=== PATIENT | female | born 1970 | race Caucasian/White ===

== ENCOUNTER 2019-05-03 07:27 | Outpatient (RCR) | payer OTHER, SELFPAY ==
--- NOTE | 2019-03-15 13:11 | WPDWOUNDNOTE ---
Wound Care Note Date/Time: 03/15/19 13:11 History: This is a 48-year-old female with a history psoriatic arthritis on chronic immunosuppression drug therapy, morbid obesity, hypertension, obstructive sleep apnea, asthma, depression, and anxiety. She has no history of previous perirectal abscesses. Patient presented to the emergency department at [facility] and was assessed by Dr. Calixto for a perianal abscess on 03/05/2019. She was taken for incision and drainage of the perianal abscess that had tunneling towards the right buttock on 03/05/2019. She was hospitalized and treated with IV antibiotics. Cultures of the wound grew bacterioides fragilis. She was transition to oral antibiotics and discharged on 03/09/2019. She went home on a course of Levaquin and Flagyl. She was sent home with silver gel and instructed to place silver gel in the wound bed and pack with plain gauze dressing. During the hospital stay, the patient was also stopped on her Humira and methotrexate medication. She was instructed to see her forensics team director and discuss the time frame of restarting this medication. She had no flare ups of for psoriatic arthritis during the admission. Wound history: Perianal abscess status post incision and drainage on 03/05/2019. Completed a course of IV to oral antibiotics. On discharge on 03/09/2019, the patient was instructed to use silver gel in the wound bed and packed with plain Nu gauze dressing and cover with gauze and an ABD. This was to be done daily. The patient now presents in initial follow-up following discharge. She reports completing her course of antibiotics. Denies any fever or chills. Reports her pain is improved significantly since discharge and she is able to tolerate the packing better. Still taking hydrocodone as needed for pain, but is now only taking half a tablet. She states she still has multiple tablets left. Denies any flare ups of her psoriatic arthritis. No other new complaints at this time. ROS- In general patient has had no weight loss, anorexia, night sweats, fever or chills. Skin-no rashes or new lesions Eyes-no problems with vision loss HENT-no recent bleeding, obstruction or other problems Neck-no history of thyromegaly or enlarged lymph nodes Chest-no history of significant wheezing, dyspnea or cough Cardiovascular-no history of thrombophlebitis, edema, heart murmur or other problems GI-no history of significant heartburn, nausea, vomiting, or bloating. Diarrhea has improved and become more formed stool. No purulence drainage from wound noted. Extremities-no history or varicose veins, claudication Endocrine-no history of temperature intolerance or goiter Neurologic-no history of headaches, seizures or dizziness. Wound approximation: No Wound width: 4.5 cm Wound length: 2.0 cm Wound depth: 2.5 cm Drainage: Minimal serosanguineous. No purulent drainage. Surrounding tissue appearance: Some localized induration noted but much improved since hospitalization. No surrounding cellulitis or erythema. Tunneling: None Percentage granulation tissue: 100% Treatment/Procedures: Wound assessment and dressing change. Dressings: Applied silver gel to the wound bed then packed the abscess cavity with 1/2 plain gauze packing, then applied gauze and ABD overlying the wound. Assessment and Plan Assessment and plan (1) Perianal abscess: Code(s): K61.0 - Anal abscess Status: Acute Assessment and Plan: Assessment: General: Obese, well-developed female without acute distress who ambulated into the room. Head: Normocephalic and atraumatic. Cardiac: RRR. No peripheral edema. Pulmonary: Normal respiratory effort without accessory muscle use. Lungs CTA throughout. GI: BS active. Abdomen soft, non-distended, and non-tender. Musculoskeletal: Normal joint ROM. No obvious deformities. Strength strong and equal bilaterally. Neurologic: Alert and oriented x 3. CN II-XII grossly intact. Psych: Mo
[2019-03-15 14:46] VITALS: BMI 57.6
--- NOTE | 2019-03-29 20:26 | P.PNWOUND_ITS ---
Wound Care Note Date/Time: 03/29/19 12:06 History: This is a 48-year-old female with a history psoriatic arthritis on chronic immunosuppression drug therapy, morbid obesity, hypertension, obstructive sleep apnea, asthma, depression, and anxiety. She has no history of previous perirectal abscesses. Patient presented to the emergency department at [facility] and was assessed by Dr. Calixto for a perianal abscess on 03/05/2019. She was taken for incision and drainage of the perianal abscess that had tunneling towards the right buttock on 03/05/2019. She was hospitalized and treated with IV antibiotics. Cultures of the wound grew bacterioides fragilis. She was transition to oral antibiotics and discharged on 03/09/2019. She went home on a course of Levaquin and Flagyl. She was sent home with silver gel and instructed to place silver gel in the wound bed and pack with plain gauze dressing. During the hospital stay, we also had the patient stop taking her Humira and methotrexate medication. She was instructed to see her workers' compensation commissioner and discuss the time frame of restarting this medication. She had no flare ups of for psoriatic arthritis during the admission. Wound history: Perianal abscess status post incision and drainage on 03/05/2019. Completed a course of IV to oral antibiotics( 2weeks) On discharge on 03/09/2019, the patient was instructed to use silver gel in the wound bed and pack it with plain Nu gauze dressing and cover with gauze and an ABD. This was to be done daily. Patient has a trusted friend who is a nurse that is packing this for her period The patient now presents for follow-up following that discharge. She reports completing her course of antibiotics. Denies any fever or chills. Reports her pain is improved significantly since her last visit and she is able to tolerate the packing. Still taking hydrocodone as needed for pain, but is now only taking half a tablet. She states she still has multiple tablets left. Denies any flare ups of her psoriatic arthritis. No other new complaints at this time. Wound approximation: No Wound width: 3.3 cm Wound length: 1.2 cm Wound depth: 1.3 cm Drainage: only serous drainage with good granulation Surrounding tissue appearance: Skin surrounding this entire wound is pink and healthy. Tunneling: just a slight amount tunneling medially toward the edge of the anal opening. Percentage granulation tissue: 100% Treatment/Procedures: off antibiotics Continue local wound care with packing. Dressings: Continuing dressings as noted above. Silver gel or cream applied to wound bed then packed loosely medially and tighter laterally with quarter or half-inch plain Nu Gauze.
--- NOTE | 2019-04-12 12:22 | WPDWOUNDNOTE ---
Wound Care Note Date/Time: 04/12/19 12:22 History: This is a 48-year-old female with a history psoriatic arthritis on chronic immunosuppression drug therapy, morbid obesity, hypertension, obstructive sleep apnea, asthma, depression, and anxiety. She has no history of previous perirectal abscesses. Patient presented to the emergency department at [facility] and was assessed by Dr. Calixto for a perianal abscess on 03/05/2019. She was taken for incision and drainage of the perianal abscess that had tunneling towards the right buttock on 03/05/2019. She was hospitalized and treated with IV antibiotics. Cultures of the wound grew bacterioides fragilis. She was transition to oral antibiotics and discharged on 03/09/2019. She went home on a course of Levaquin and Flagyl. She was sent home with silver gel and instructed to place silver gel in the wound bed and pack with plain gauze dressing. During the hospital stay, we also had the patient stop taking her Humira and methotrexate medication. She was instructed to see her engraver automatic and discuss the time frame of restarting this medication. She had no flare ups of for psoriatic arthritis during the admission. She since has called her Cafeteria Helper and she was okay with holding the previously mentioned medications and take her PO Tramadol as needed for the pain and if she has worsening symptoms, then they would consider also oral steroids. As of today, the patient is still off the Humira and methotrexate and states she is definitely having symptoms with pain due to her psoriatic arthritis, but it is being well-controlled with the Tramadol at this time without any need for steroids. Wound history: Perianal abscess status post incision and drainage on 03/05/2019. Completed a course of IV to oral antibiotics( 2weeks) On discharge on 03/09/2019, the patient was instructed to use silver gel in the wound bed and pack it with plain Nu gauze dressing and cover with gauze and an ABD. This was to be done daily. Patient has a trusted friend who is a nurse that has been packing this for her. The patient now presents for her third follow-up following that discharge. Denies any fever or chills. Denies any noticed changes in the wound, including no drainage. No other new complaints at this time. Wound approximation: No Wound width: 2.2 cm Wound length: 1 cm Wound depth: 0.5 cm Drainage: None Surrounding tissue appearance: Skin surrounding this entire wound is pink and healthy. Tunneling: The area of previous tunneling has began to epithelialize. There is no areas of significant tunneling noted today. Percentage granulation tissue: 100% Treatment/Procedures: Wound assessment: The wound appears to be continuing to heal well without any further signs of infection. The inside of the wound bed has 100% granulation tissue but the area of the wound bed along the inferior border of the wound appears to have some hypertrophy of the tissue that extends above the level of skin and likely wound inhibit continued wound healing for this to approximate well. Therefore, Dr. Calixto (who was also present for the evaluation) applied some silver nitrate to this area of what appeared to be hypertophied granulation tissue. This will hopefully allow this to continue to epithelialize and heal in nicely. Overall, the wound has also decreased in length, width, and depth. Continues to heal well. We will plan to see the patient in follow-up with Dr. Calixto in the wound clinic in 3 weeks (May 03). Continue local wound care as described below. Dressing changed today. Dressings: At this point, it does not need any further packing. Will continue to apply silver gel to the wound bed and cover with ABD or gauze dressing. Change daily and as needed after bowel movements.
--- NOTE | 2019-05-12 12:55 | WPDWOUNDNOTE ---
Wound Care Note Date/Time: 05/03/19 12:55 History: This is a 48-year-old female with a history psoriatic arthritis on chronic immunosuppression drug therapy, morbid obesity, hypertension, obstructive sleep apnea, asthma, depression, and anxiety. She has no history of previous perirectal abscesses. Patient presented to the emergency department at [facility] and was assessed by myself for a perianal abscess on 03/05/2019. She was taken for incision and drainage of the perianal abscess that had tunneling towards the right buttock on 03/05/2019. She was hospitalized and treated with IV antibiotics. Cultures of the wound grew bacterioides fragilis. She was transition to oral antibiotics and discharged on 03/09/2019. She went home on a course of Levaquin and Flagyl. She was sent home with silver gel and instructed to place silver gel in the wound bed and pack with plain gauze dressing. During the hospital stay, we also had the patient stop taking her Humira and methotrexate medication. She was instructed to see her intranet developer and discuss the time frame of restarting this medication. She had no flare ups of for psoriatic arthritis during the admission. She since has called her Belt Conveyor Drier and she was okay with holding the previously mentioned medications and take her PO Tramadol as needed for the pain and if she has worsening symptoms, then they would consider also oral steroids. As of today, the patient is still off the Humira and methotrexate and states she is definitely having symptoms with pain due to her psoriatic arthritis, but it is being well-controlled with the Tramadol at this time without any need for steroids. Wound history: Wound history: Perianal abscess status post incision and drainage on 03/05/2019. Completed a course of IV to oral antibiotics( 2weeks) On discharge on 03/09/2019, the patient was instructed to use silver gel in the wound bed and pack it with plain Nu gauze dressing and cover with gauze and an ABD. This was to be done daily. Patient has a trusted friend who is a nurse that has been packing this for her. The patient now presents for her third follow-up following that discharge. Denies any fever or chills. Denies any noticed changes in the wound, including no drainage. No other new complaints at this time Wound approximation: Yes ( today wound appears to be completely healed in. There is still a crease.) Wound width: Wound is completely healed in and there is still a crease that has epithelialized that starts right at the anal opening extends laterally toward the right buttock. There is however no open wound. Wound length: Wound is completely healed in and there is still a crease that has epithelialized that starts right at the anal opening extends laterally toward the right buttock. There is however no open wound Wound depth: NA Drainage: None Surrounding tissue appearance: the surrounding skin looks like normal scan on the buttock Tunneling: none Percentage granulation tissue: not applicable. Wound is healed. Treatment/Procedures: I have discussed with the patient and her friend who is a nurse that I think that she should simply take a Sitz bath or and old shower after each bowel movement for the next week. She is to keep a cotton ball at the exit or at the external opening of the anus. She needs to try to prevent maceration at this site. Dressings: No dressings required except a dry cotton ball at the a opening of the anus. Assessment and Plan Assessment and plan (1) Perianal abscess: Onset Date: ~03/2019 Code(s): K61.0 - Anal abscess Status: Acute Assessment and Plan: This state I had a significant discussion with the patient about trying to prevent another perineal abscess. Basically this involves hygiene and being cautious about injury to the skin in the perianal area and keeping that skin healthy. We also discussed the possibility that this was really t
== END 2019-06-03 12:32 | disposition home or self-care (01) ==
LOC: ANHWOC 07:27
PROVIDERS: PCP Family Medicine; Visit Provider Surgery
DX: L05.91 Pilonidal cyst without abscess (principal)
CPT/HCPCS: 92593; 99212; 99213; G0463

== ENCOUNTER 2019-10-22 13:09 | Outpatient (CLI) | payer OTHER, SELFPAY ==
[2019-10-22 13:37] LABS: Basophils Absolute Auto 0.1 K/mm3 (0.0-0.1); Basophils Percent Auto 1.5 % (0.2-1.2); Eosinophils Absolute Auto 0.2 K/mm3 (0-0.3); Hematocrit 42.8 % (37.0-47.0); Hemoglobin 14.2 g/dL (12.0-15.0); Immature Granulocyte Absolute 0.02 K/mm3 (0.00-0.031); Immature Granulocyte Percent A 0.3 % (0-0.5); Lymphocytes Absolute Auto 2.48 K/mm3 (0.9-3.2); Lymphocytes Percent Auto 37.8 % (18.3-44.2); Mean Corpuscular HGB Conc 33.2 g/dl (32-36); Mean Corpuscular Hemoglobin 30.6 pg (26-34); Mean Corpuscular Volume 92.2 fl (80-100); Mean Platelet Volume 11.5 fl (7.4-10.4); Monocytes Absolute Auto 0.6 K/mm3 (0.1-0.6); Monocytes Percent Auto 9.1 % (2.6-8.5); Neutrophils Absolute Auto 3.2 K/mm3 (1.3-6.7); Neutrophils Percent Auto 48.3 % (45.5-73.1); Platelet Count Result 286 k/mm3 (150-375); Red Blood Count 4.64 M/mm3 (4.2-5.4); Red Cell Distribution Width 13.6 % (11.5-14.5); White Blood Count 6.6 K/mm3 (4.5-10.0)
[2019-10-22 13:44] LABS: Add Urine Microscopic? YES; Appearance Urine Clear (Clear); Bacteria Urine Trace /hpf; Bilirubin Urine Negative (Negative); Blood Urine Negative (Negative); Color Urine Yellow (Yellow); Glucose Urine UA Negative (Negative); Hyaline Casts Urine 20-29 /lpf; Ketones Urine Trace mg/dL (Negative); Leukocyte Esterase Ur Negative LEU/UL (NEGATIVE); Mucus Urine Rare /lpf; Nitrate Urine Negative (Negative); Protein Urine 2+ mg/dL (Negative); Specific Grav Ur 1.024 (1.001-1.035); Squamous Epithelial Cell Urine Many /hpf (Few)
[2019-10-22 13:50] LABS: Alanine Aminotransferase 15 U/L (4-35); Albumin Level 4.2 g/dL (3.5-5.1); Alkaline Phosphatase 84 U/L (38-126); Aspartate Amino Transferase 31 U/L (14-36); Bilirubin,Total 0.3 mg/dL (0.2-1.3); Blood Urea Nitrogen 11 mg/dL (7-17); Calcium 9.1 mg/dL (8.4-10.2); Carbon Dioxide 27 mmol/L (22-30); Chloride 99 mmol/L (98-107); Cholesterol 210 mg/dL (0-200); Estimated Glomerular Filt Rate > 60; Glucose 129 mg/dL (65-105); HDL Direct 46 mg/dL; Potassium 3.9 mmol/L (3.4-5.0); Sodium 134 mmol/L (137-145); Triglycerides 331 mg/dL (<150)
[2019-10-22 14:01] LABS: LDL Cholesterol Direct 134 mg/dL
[2019-10-22 14:18] LABS: Iron 108 ug/dL (37-170)
[2019-10-22 14:28] LABS: Percent Iron Saturation 37 % (20-50)
[2019-10-22 14:57] LABS: Folic Acid 13.1 ng/mL (2.76->20); Vitamin B12 > 1000.0 pg/mL (239-931)
[2019-10-24 23:09] LABS: Zinc 66 mcg/dL (60-130)
[2019-10-26 13:17] LABS: Vitamin B1 7 nmol/L (8-30)
== END 2019-10-22 13:10 | disposition home or self-care (01) ==
PROVIDERS: PCP Family Medicine
DX: E55.9 Vitamin D deficiency, unspecified (principal); K90.9 Intestinal malabsorption, unspecified; I10 Essential (primary) hypertension; Z98.84 Bariatric surgery status
CPT/HCPCS: 36415; 80053; 80061; 81001; 82525; 82607; 82728; 82746; 83036; 83540; 83550; 84425; 84443; 84630; 85025

== ENCOUNTER 2019-10-28 10:04 | Outpatient (CLI) | payer OTHER, SELFPAY ==
--- NOTE | ~2019-10-28 | CT_ITS ---
EXAMINATION: CT chest wo con DATE: 10/28/2019 10:31 INDICATION: Pulmonary nodule TECHNIQUE: Computed tomography (CT) of the chest was performed without intravenous contrast. The dose -length product (DLP) was 510.82 mGy-cm. Automated exposure control and iterative reconstruction tech Cod[employer] were employed. COMPARISON: 09/10/2018 FINDINGS: A 4 mm nodule of the left lower lobe on image 53 appears stable although there was slight r espiratory motion artifact in this area on the comparison examination. No new pulmonary nodules are i dentified. There is no pleural effusion or pneumothorax. No pathologically enlarged thoracic lymph no markos are identified. The heart size is normal. Calcified coronary artery atherosclerosis is noted. Nicolas gical changes in the stomach are likely related to gastric bypass. There is moderate thoracic spondyl osis. IMPRESSION: 1. Stable left lower lobe nodule, most likely old granulomatous disease. Reviewed, dictated and finalized at location A.
== END 2019-10-28 10:05 | disposition home or self-care (01) ==
PROVIDERS: PCP Family Medicine; Visit Provider Nurse Practitioner Family
DX: R91.1 Solitary pulmonary nodule (principal)
CPT/HCPCS: 71250

== ENCOUNTER 2020-01-05 08:37 | Outpatient (CLI) | payer OTHER, SELFPAY ==
[2020-01-05 08:54] LABS: Hematocrit 42.7 % (37.0-47.0); Hemoglobin 14.7 g/dL (12.0-15.0); Mean Corpuscular HGB Conc 34.4 g/dl (32-36); Mean Corpuscular Hemoglobin 31.1 pg (26-34); Mean Corpuscular Volume 90.5 fl (80-100); Mean Platelet Volume 11.3 fl (7.4-10.4); Platelet Count Result 278 k/mm3 (150-375); Red Blood Count 4.72 M/mm3 (4.2-5.4); Red Cell Distribution Width 13.2 % (11.5-14.5); White Blood Count 7.1 K/mm3 (4.5-10.0)
[2020-01-05 09:10] LABS: Alanine Aminotransferase 16 U/L (4-35); Alkaline Phosphatase 77 U/L (38-126); Anion Gap 8 mmol/L (8-16); Aspartate Amino Transferase 28 U/L (14-36); Bilirubin,Total 0.3 mg/dL (0.2-1.3); Blood Urea Nitrogen 12 mg/dL (7-17); CRP 1.3 mg/dL (<1.0); Calcium 8.9 mg/dL (8.4-10.2); Carbon Dioxide 27 mmol/L (22-30); Chloride 101 mmol/L (98-107); Estimated Glomerular Filt Rate > 60; Glucose 135 mg/dL (65-105); Potassium 3.7 mmol/L (3.4-5.0); Sodium 136 mmol/L (137-145)
[2020-01-05 09:17] LABS: Erythrocyte Sedimentation Rate 20 mm/hr (0-20)
== END 2020-01-05 08:38 | disposition home or self-care (01) ==
LOC: ANHLAB 08:41
PROVIDERS: PCP Family Medicine
DX: M06.9 Rheumatoid arthritis, unspecified (principal); Z79.899 Other long term (current) drug therapy; L40.50 Arthropathic psoriasis, unspecified
CPT/HCPCS: 36415; 80053; 85027; 85652; 86140

== ENCOUNTER 2020-03-27 17:07 | Outpatient (CLI) | payer OTHER, SELFPAY ==
--- NOTE | ~2020-03-27 | MM_ITS ---
EXAMINATION: MM screening devika BI w tammy HISTORY: Screening mammogram TECHNIQUE: Craniocaudal and mediolateral oblique 3-D tomosynthesis images were obtained and synthetic 2-D images were generated. CAD analysis was submitted and interpreted. COMPARISON: 08/18/2017 bilateral digital screening mammogram BREAST PARENCHYMAL COMPOSITION: There are scattered areas of fibroglandular density. FINDINGS: A few stable benign calcifications are noted. There is no evidence of suspicious mass, calc ification, or architectural distortion to suggest malignancy in either breast. There has been no susp icious interval change. IMPRESSION: 1. No mammographic evidence of malignancy. 2. Recommend routine screening mammography in one year. BI-RADS Category 2: Benign finding(s). Reviewed, dictated and finalized at location A. RBERATORY FURNACE SUPERVISOR
== END 2020-03-27 17:08 | disposition home or self-care (01) ==
LOC: ANHIMG 17:10
PROVIDERS: PCP Family Medicine; Visit Provider Obstetrics & Gynecology
DX: Z12.31 Encounter for screening mammogram for malignant neoplasm of breast (principal)
CPT/HCPCS: 77063; 77067

== ENCOUNTER 2020-09-20 16:50 | Outpatient (CLI) | payer OTHER, SELFPAY ==
--- NOTE | ~2020-09-20 | CT_ITS ---
EXAMINATION: CT diagnostic chest wo con DATE: 09/20/2020 17:08 INDICATION: Solitary pulmonary nodule TECHNIQUE: Computed tomography (CT) of the chest was performed without intravenous contrast. The dose -length product (DLP) was 585.03 mGy-cm. Automated exposure control and iterative reconstruction tech nique were employed. COMPARISON: 10/28/2019, 09/10/2018 FINDINGS: A 5 mm nodule of the left lower lobe is not significantly changed. No new pulmonary nodules are identified. The lungs are free of acute opacities. There is no pleural effusion or pneumothorax. No pathologically enlarged thoracic lymph nodes are identified. The heart size is normal. Calcified coronary artery atherosclerosis is noted. Surgical changes in the stomach likely related to gastric b ypass. The gallbladder is surgically absent. There is moderate thoracic spondylosis. IMPRESSION: 1. Stable left lower lobe nodule, most consistent with old granulomatous disease. Reviewed, dictated and finalized at location A. IMPRESSION: 1. Stable left lower lobe nodule, most consistent with old granulomatous diseas e.
== END 2020-09-20 16:51 | disposition home or self-care (01) ==
PROVIDERS: PCP Family Medicine; Visit Provider Nurse Practitioner Family
DX: R91.1 Solitary pulmonary nodule (principal)
CPT/HCPCS: 71250

== ENCOUNTER 2020-10-17 08:12 | Outpatient (CLI) | payer OTHER, SELFPAY ==
[2020-10-17 08:59] LABS: Alanine Aminotransferase 23 U/L (4-35); Albumin Level 4.4 g/dL (3.5-5.1); Alkaline Phosphatase 63 U/L (38-126); Anion Gap 11 mmol/L (8-16); Aspartate Amino Transferase 41 U/L (14-36); Bilirubin,Total 0.5 mg/dL (0.2-1.3); Blood Urea Nitrogen 18 mg/dL (7-17); Calcium 9.9 mg/dL (8.4-10.2); Carbon Dioxide 28 mmol/L (22-30); Chloride 100 mmol/L (98-107); Estimated Glomerular Filt Rate > 60; Glucose 114 mg/dL (65-105); Potassium 3.6 mmol/L (3.4-5.0); Sodium 139 mmol/L (137-145)
[2020-10-17 09:28] LABS: Hemoglobin A1C 5.7 % (<5.7)
[2020-10-17 10:06] LABS: Folic Acid 12.7 ng/mL (2.76->20); Vitamin B12 > 1000.0 pg/mL (239-931)
[2020-10-17 13:06] LABS: CRP 0.9 mg/dL (<1.0)
[2020-10-17 13:16] LABS: Erythrocyte Sedimentation Rate 16 mm/hr (0-20)
[2020-10-20 12:05] LABS: Vitamin B1 25 nmol/L (8-30)
== END 2020-10-17 08:13 | disposition home or self-care (01) ==
PROVIDERS: PCP Family Medicine; Visit Provider Physician Assistant
DX: E51.9 Thiamine deficiency, unspecified (principal); R74.8 Abnormal levels of other serum enzymes; R73.01 Impaired fasting glucose; M17.10 Unilateral primary osteoarthritis, unspecified knee; L40.50 Arthropathic psoriasis, unspecified
CPT/HCPCS: 36415; 80053; 82607; 82746; 83036; 84425; 85652; 86140

== ENCOUNTER 2021-02-18 08:15 | Outpatient (CLI) | payer OTHER, SELFPAY ==
[2021-02-18 08:48] LABS: Hematocrit 45.1 % (37.0-47.0); Hemoglobin 14.9 g/dL (12.0-15.0); Mean Corpuscular Volume 93.8 fl (80-100); Mean Platelet Volume 11.9 fl (7.4-10.4); Platelet Count Result 246 k/mm3 (150-375); Red Blood Count 4.81 M/mm3 (4.2-5.4); Red Cell Distribution Width 13.8 % (11.5-14.5); White Blood Count 7.4 K/mm3 (4.5-10.0)
[2021-02-18 09:02] LABS: Alanine Aminotransferase 22 U/L (4-35); Albumin Level 4.4 g/dL (3.5-5.1); Alkaline Phosphatase 70 U/L (38-126); Anion Gap 7 mmol/L (8-16); Aspartate Amino Transferase 30 U/L (14-36); Bilirubin,Total 0.5 mg/dL (0.2-1.3); Blood Urea Nitrogen 14 mg/dL (7-17); Calcium 9.8 mg/dL (8.4-10.2); Carbon Dioxide 31 mmol/L (22-30); Chloride 100 mmol/L (98-107); Cholesterol 147 mg/dL (0-200); Estimated Glomerular Filt Rate > 60; Glucose 99 mg/dL (65-110); HDL Direct 38 mg/dL; Potassium 3.5 mmol/L (3.4-5.0); Sodium 138 mmol/L (137-145); Triglycerides 169 mg/dL (<150)
[2021-02-18 09:13] LABS: LDL Cholesterol Direct 80 mg/dL
[2021-02-18 10:10] LABS: Folic Acid 15.4 ng/mL (2.76->20); Vitamin B12 > 1000.0 pg/mL (239-931)
[2021-02-18 10:31] LABS: Iron 78 ug/dL (37-170)
[2021-02-18 10:40] LABS: Percent Iron Saturation 24 % (20-50)
[2021-02-18 12:39] LABS: Vitamin D 25 Hydroxy 89.4 ng/mL
[2021-02-21 00:35] LABS: Zinc 89 mcg/dL (60-130)
== END 2021-02-18 08:16 | disposition home or self-care (01) ==
PROVIDERS: PCP Family Medicine
DX: L40.50 Arthropathic psoriasis, unspecified (principal); E55.9 Vitamin D deficiency, unspecified; Z98.84 Bariatric surgery status; K90.9 Intestinal malabsorption, unspecified; I10 Essential (primary) hypertension
CPT/HCPCS: 36415; 80053; 80061; 82306; 82525; 82607; 82728; 82746; 83540; 83550; 84425; 84436; 84443; 84630; 85027

== ENCOUNTER 2021-04-18 08:18 | Outpatient (CLI) | payer OTHER, SELFPAY ==
[2021-04-18 09:06] LABS: Hematocrit 43.6 % (37.0-47.0); Hemoglobin 14.3 g/dL (12.0-15.0); Mean Corpuscular HGB Conc 32.8 g/dl (32-36); Mean Corpuscular Hemoglobin 30.8 pg (26-34); Mean Corpuscular Volume 93.8 fl (80-100); Mean Platelet Volume 12.6 fl (7.4-10.4); Platelet Count Result 231 k/mm3 (150-375); Red Blood Count 4.65 M/mm3 (4.2-5.4); White Blood Count 7.1 K/mm3 (4.5-10.0)
[2021-04-18 09:17] LABS: Alanine Aminotransferase 18 U/L (4-35); Albumin Level 4.2 g/dL (3.5-5.1); Alkaline Phosphatase 64 U/L (38-126); Anion Gap 5 mmol/L (8-16); Aspartate Amino Transferase 27 U/L (14-36); Bilirubin,Total 0.3 mg/dL (0.2-1.3); Blood Urea Nitrogen 18 mg/dL (7-17); Calcium 9.6 mg/dL (8.4-10.2); Carbon Dioxide 29 mmol/L (22-30); Chloride 102 mmol/L (98-107); Cholesterol 156 mg/dL (0-200); Estimated Glomerular Filt Rate > 60; Glucose 108 mg/dL (65-110); HDL Direct 43 mg/dL; Potassium 4.1 mmol/L (3.4-5.0); Sodium 136 mmol/L (137-145); Triglycerides 166 mg/dL (<150)
[2021-04-18 09:28] LABS: LDL Cholesterol Direct 85 mg/dL
[2021-04-18 09:38] LABS: Hemoglobin A1C 5.1 % (<5.7)
[2021-04-18 10:00] LABS: Add Urine Microscopic? YES; Appearance Urine Cloudy (Clear); Bacteria Urine Trace /hpf; Bilirubin Urine Negative (Negative); Blood Urine Negative (Negative); Color Urine Yellow (Yellow); Glucose Urine UA Negative (Negative); Ketones Urine Negative (Negative); Leukocyte Esterase Ur 2+ LEU/UL (NEGATIVE); Mucus Urine Rare /lpf; Nitrate Urine Negative (Negative); Protein Urine 1+ mg/dL (Negative); Specific Grav Ur 1.026 (1.001-1.035); Squamous Epithelial Cell Urine Many /hpf (Few); Urobilinogen Urine Negative mg/dL (<2.0)
== END 2021-04-18 08:19 | disposition home or self-care (01) ==
PROVIDERS: PCP Family Medicine; Visit Provider Family Medicine
DX: R73.01 Impaired fasting glucose (principal); I10 Essential (primary) hypertension; Z00.00 Encounter for general adult medical examination without abnormal findings
CPT/HCPCS: 36415; 80053; 80061; 81001; 83036; 84443; 85027

== ENCOUNTER 2021-05-07 16:50 | Outpatient (CLI) | payer OTHER, SELFPAY ==
--- NOTE | ~2021-05-07 | MM_ITS ---
EXAMINATION: MM screening devika BI w tammy HISTORY: Screening mammogram TECHNIQUE: Craniocaudal and mediolateral oblique 3-D tomosynthesis images were obtained and synthetic 2-D images were generated. CAD analysis was submitted and interpreted. COMPARISON: 03/23/2020, 08/18/2017 bilateral screening mammogram examinations BREAST PARENCHYMAL COMPOSITION: There are scattered areas of fibroglandular density. FINDINGS: There is no evidence of suspicious mass, calcification, or architectural distortion to sugg est malignancy in either breast. There has been no suspicious interval change. IMPRESSION: 1. No mammographic evidence of malignancy. 2. Recommend routine screening mammography in one year. BI-RADS Category 1: Negative Reviewed, dictated and finalized at location A. WELT BUTTER
== END 2021-05-07 16:51 | disposition home or self-care (01) ==
PROVIDERS: PCP Family Medicine; Visit Provider Obstetrics & Gynecology
DX: Z12.31 Encounter for screening mammogram for malignant neoplasm of breast (principal)
CPT/HCPCS: 77063; 77067

== ENCOUNTER 2021-07-02 13:44 | Outpatient (CLI) | payer OTHER, SELFPAY ==
[2021-07-02 15:25] LABS: Free T4 Free Thyroxine 1.26 ng/mL (0.78-2.19)
[2021-07-02 15:42] LABS: Folic Acid > 20.0 ng/mL (2.76->20)
== END 2021-07-02 13:45 | disposition home or self-care (01) ==
LOC: ANHLAB 13:47
PROVIDERS: PCP Family Medicine; Visit Provider Family Medicine
DX: R53.83 Other fatigue (principal); L65.9 Nonscarring hair loss, unspecified
CPT/HCPCS: 36415; 82607; 82746; 84439; 84443

== ENCOUNTER 2021-08-20 08:43 | Outpatient (CLI) | payer OTHER, SELFPAY ==
[2021-08-20 09:02] LABS: Hematocrit 45.7 % (37.0-47.0); Hemoglobin 15.3 g/dL (12.0-15.0); Mean Corpuscular HGB Conc 33.5 g/dl (32-36); Mean Corpuscular Hemoglobin 31.6 pg (26-34); Mean Corpuscular Volume 94.4 fl (80-100); Mean Platelet Volume 11.5 fl (7.4-10.4); Platelet Count Result 217 k/mm3 (150-375); Red Blood Count 4.84 M/mm3 (4.2-5.4); Red Cell Distribution Width 13.2 % (11.5-14.5); White Blood Count 6.3 K/mm3 (4.5-10.0)
[2021-08-20 09:15] LABS: Alanine Aminotransferase 14 U/L (4-35); Albumin Level 3.8 g/dL (3.5-5.1); Alkaline Phosphatase 63 U/L (38-126); Anion Gap 4 mmol/L (8-16); Aspartate Amino Transferase 28 U/L (14-36); Bilirubin,Total 0.2 mg/dL (0.2-1.3); Blood Urea Nitrogen 26 mg/dL (7-17); CRP < 0.5 mg/dL (<1.0); Calcium 9.1 mg/dL (8.4-10.2); Carbon Dioxide 33 mmol/L (22-30); Chloride 101 mmol/L (98-107); Estimated Glomerular Filt Rate > 60; Glucose 101 mg/dL (65-110); Potassium 4.1 mmol/L (3.4-5.0); Sodium 138 mmol/L (137-145)
[2021-08-20 10:17] LABS: Erythrocyte Sedimentation Rate 11 mm/hr (0-20)
== END 2021-08-20 08:44 | disposition home or self-care (01) ==
PROVIDERS: PCP Family Medicine
DX: L40.50 Arthropathic psoriasis, unspecified (principal)
CPT/HCPCS: 36415; 80053; 85027; 85652; 86140

== ENCOUNTER 2021-10-31 13:55 | Outpatient (CLI) | payer OTHER, SELFPAY ==
--- NOTE | ~2021-10-31 | XR_ITS ---
EXAMINATION: XR chest 2V 10/31/2021 14:10 INDICATION: Wheezing and congestion PROCEDURE: 2 view chest COMPARISON: 08/24/2018 FINDINGS: The lungs are clear. The cardiomediastinal silhouette is within normal limits. There are no pleural effusions. There is no pneumothorax suspected. IMPRESSION: 1: NO ACUTE CARDIOPULMONARY DISEASE. Reviewed, dictated and finalized at location A.
== END 2021-10-31 13:56 | disposition home or self-care (01) ==
LOC: ANHIMG 13:58
PROVIDERS: PCP Family Medicine; Visit Provider Physician Assistant
DX: U07.1 COVID-19 (principal)
CPT/HCPCS: 71046

== ENCOUNTER 2021-12-20 00:47 | Day surgery (SDC) | payer OTHER, SELFPAY ==
[2021-10-08 14:46] VITALS: BMI 48.7
[2021-12-09 14:59] VITALS: BMI 48.7
[2021-12-20 11:39] VITALS: BMI 49.4
[2021-12-20 11:41] VITALS: BP 147/81; PULSE 76; RESP 18; TEMP 36.2; O2SAT 97
--- NOTE | 2021-12-20 11:54 | WPDANESEPPF ---
Anes - Initial Pre Proc Eval Procedure: Operation Date: 12/20/21 13:00 Proposed Procedures p Screening Colonoscopy - Dewayne Shore MD Date/Time: 12/20/21 11:54 Surgeon: Dewayne Shore MD Pre Op Diagnosis: neoplasm screening Patient Data Age: 51 Gender: F Height: 1.65 m Weight: 134.9 kg Last Vital Signs Temp 97.2 F L 12/20/21 11:41 Pulse 76 12/20/21 11:41 Resp 18 12/20/21 11:41 BP 147/81 H 12/20/21 11:41 Pulse Ox 97 12/20/21 11:41 O2 Del Method Room Air 12/20/21 11:41 Allergies Allergy/AdvReac Type Severity Reaction Status Date / Time Penicillins Allergy Anaphylactic Verified 12/10/21 16:20 Shock rofecoxib [From Vioxx] AdvReac Hypertensio Verified 12/10/21 16:20 n Home Medications Medication Instructions Recorded Confirmed Type adalimumab 40 mg/0.8 mL 40 mg subcut [id number] 03/05/19 12/10/21 History subcutaneous pen kit (Humira Pen) budesonide-formoterol HFA 80 2 puff inhalation Q12H 03/05/19 12/10/21 History mcg-4.5 mcg/actuation aerosol inhaler (Symbicort) cetirizine 10 mg tablet (Zyrtec) 10 mg PO DAILY 03/05/19 12/10/21 History clonazepam 0.5 mg tablet (Klonopin) 0.5 mg PO HS 03/05/19 12/10/21 History folic acid 1 mg tablet 1 mg PO DAILY 03/05/19 12/10/21 History hydroxyzine pamoate 25 mg capsule 25 mg PO BID 03/05/19 12/10/21 History (Vistaril) leflunomide 10 mg tablet (Arava) 10 mg PO DAILY 03/05/19 12/10/21 History methotrexate sodium 2.5 mg tablet 20 mg PO WEEKLY 03/05/19 12/10/21 History lisinopril 20 1 tablet PO DAILY 09/14/19 12/10/21 History mg-hydrochlorothiazide 12.5 mg tablet montelukast 10 mg tablet 10 mg PO DAILY 09/14/19 12/10/21 History (Singulair) valacyclovir 1 gram tablet 1,000 mg PO DAILY 09/14/19 12/10/21 History (Valtrex) mecobalamin (vitamin B12) 5,000 5,000 mcg PO DAILY 11/25/19 12/10/21 History mcg disintegrating tablet thiamine HCl (vitamin B1) 100 mg 100 mg PO DAILY 11/25/19 12/10/21 History tablet escitalopram oxalate 20 mg tablet 20 mg PO DAILY 04/10/20 12/10/21 History ferrous sulfate 325 mg (65 mg 325 mg PO DAILY 04/10/20 12/10/21 History iron) tablet meloxicam 7.5 mg tablet 7.5 mg PO DAILY 04/10/20 12/10/21 History albuterol sulfate 90 mcg/actuation 1 inh inhalation .prn 09/17/20 12/10/21 History aerosol inhaler (ProAir HFA) fluticasone propionate 50 2 spray intranasal DAILY 09/17/20 12/10/21 History mcg/actuation nasal spray,suspension (Flonase Allergy Relief) cholecalciferol (vitamin D3) 250 250 mcg PO DAILY 11/21/21 12/10/21 History mcg (10,000 unit) capsule Patient hx anesthesia problems: none Family hx anesthesia problems: none Results Review: All pre-operative results and documents have been reviewed as part of the pre-operative evaluation. [facility] Past Medical History Medical History (Updated 12/20/21 @ 12:22 by Dewayne Shore MD) Allergic rhinitis Asthma Colon cancer screening Depression History of rectal abscess Hypertension IFG (impaired fasting glucose) Immunosuppression due to drug therapy Mild asthma with exacerbation Morbid obesity (Unknown) RICARDO (obstructive sleep apnea) Psoriatic arthritis Restless leg syndrome Surgical History Surgical History History of bilateral cataract extraction History of cholecystectomy History of endometrial ablation x2 History of gastric bypass 2003 S/P partial hysterectomy S/P alma-rectal abscess repair, follow-up exam Family History Family History Grandparent Family history of cardiovascular disease Father Diabetes mellitus Melanoma Mother Hypertension Sibling Hypertension Social History Social History Smoking packs per day: 0.5 Smoking cigarettes per day: 10.0 Years smoked: 20 Smo
[2021-12-20] MEDS: LACTATED RINGERS 1,000 ML 150 ML IV CONT (12:16)
--- NOTE | 2021-12-20 12:21 | PM.HPGS ---
History of Present Illness History of Present Illness Consent: Risks, benefits, and alternatives have been discussed and questions answered. Patient agrees to proceed with procedure. Chief complaint: neoplasm screening Narrative: Jimena Garzon is a 51 year old female here for first screening colonoscopy Review of Systems Constitutional: Constitutional: Denies headache(s) and Denies weakness Eyes: Eyes: Denies blurry vision ENT: Reports Normal hearing present, Denies headache(s) and Denies neck pain Cardiovascular: Cardiovascular: Denies chest pain and Denies dyspnea Respiratory: Respiratory: Denies dyspnea Gastrointestinal: Gastrointestinal: Reports no additional gastrointestinal complaints Genitourinary: Genitourinary: Denies dysuria Musculoskeletal: Musculoskeletal: Denies neck pain Integumentary/Breasts: Skin/Breast: Denies dry skin Neurologic: Reports Normal hearing present, Denies headache(s) and Denies weakness Psychiatric: Psychiatric: Denies anxiety Endocrine: Endocrine: Denies change in body appearance Hematologic/Lymphatic: Hematologic/Lymphatic: Denies easy bleeding Allergic/Immunologic: Allergic/Immunologic: Denies urticaria PMF Past Medical History Medical History (Updated 12/20/21 @ 12:22 by Dewayne Shore MD) Allergic rhinitis Asthma Colon cancer screening Depression History of rectal abscess Hypertension IFG (impaired fasting glucose) Immunosuppression due to drug therapy Mild asthma with exacerbation Morbid obesity (Unknown) RICARDO (obstructive sleep apnea) Psoriatic arthritis Restless leg syndrome Surgical History Surgical History History of bilateral cataract extraction History of cholecystectomy History of endometrial ablation x2 History of gastric bypass 2004 S/P partial hysterectomy S/P alma-rectal abscess repair, follow-up exam Family History Family History Grandparent Family history of cardiovascular disease Father Diabetes mellitus Melanoma Mother Hypertension Sibling Hypertension Social History Social History Smoking packs per day: 0.5 Smoking cigarettes per day: 10.0 Years smoked: 20 Smoking pack-years: 10.00 Smoking status: Former smoker Tobacco type: cigarettes Second hand tobacco smoke exposure: Yes Smoking end date: 11/15/17 Alcohol intake: never Alcohol use details: Rare alcohol use. Substance use: never Substance use type: does not use Gender identity (if verbalized by the patient): Female Spiritual care concerns: No Agree to blood products: Yes Meds Home Medications and Allergies Home Medications Medication Instructions Recorded Confirmed Type adalimumab 40 mg/0.8 mL 40 mg subcut [id number] 03/05/19 12/10/21 History subcutaneous pen kit (Humira Pen) budesonide-formoterol HFA 80 2 puff inhalation Q12H 03/05/19 12/10/21 History mcg-4.5 mcg/actuation aerosol inhaler (Symbicort) cetirizine 10 mg tablet (Zyrtec) 10 mg PO DAILY 03/05/19 12/10/21 History clonazepam 0.5 mg tablet (Klonopin) 0.5 mg PO HS 03/05/19 12/10/21 History folic acid 1 mg tablet 1 mg PO DAILY 03/05/19 12/10/21 History hydroxyzine pamoate 25 mg capsule 25 mg PO BID 03/05/19 12/10/21 History (Vistaril) leflunomide 10 mg tablet (Arava) 10 mg PO DAILY 03/05/19 12/10/21 History methotrexate sodium 2.5 mg tablet 20 mg PO WEEKLY 03/05/19 12/10/21 History lisinopril 20 1 tablet PO DAILY 09/14/19 12/10/21 History mg-hydrochlorothiazide 12.5 mg tablet montelukast 10 mg tablet 10 mg PO DAILY 09/14/19 12/10/21 History (Singulair) valacyclovir 1 gram tablet 1,000 mg PO DAILY 09/14/19 12/10/21 History (Valtrex) mecobalamin (vitamin B12) 5,000 5,000 mcg PO DAILY 11/25/19 12/10/21 History mcg disintegrating tablet thiamine HCl (vitam
[2021-12-20 12:38] VITALS: BP 110/75; PULSE 75; RESP 18; O2SAT 98
[2021-12-20 12:48] VITALS: BP 114/70; PULSE 71; RESP 18; O2SAT 98
[2021-12-20 12:58] VITALS: BP 121/78; PULSE 66; RESP 18; O2SAT 98
== END 2021-12-20 13:13 | disposition home or self-care (01) ==
PROVIDERS: PCP Family Medicine; Visit Provider Internal Medicine Gastroenterology
PROC: 0DJD8ZZ Inspection of Lower Intestinal Tract, Via Natural or Artificial Opening Endoscopic (ICD-10-PCS; CPT 45378; principal; 2021-12-20 13:00)
DX: Z12.11 Encounter for screening for malignant neoplasm of colon (principal); K64.8 Other hemorrhoids; J45.909 Unspecified asthma, uncomplicated; I10 Essential (primary) hypertension; G47.33 Obstructive sleep apnea (adult) (pediatric); L40.50 Arthropathic psoriasis, unspecified; F32.A Depression, unspecified; G25.81 Restless legs syndrome; Z79.51 Long term (current) use of inhaled steroids; Z79.899 Other long term (current) drug therapy; Z98.84 Bariatric surgery status; Z87.891 Personal history of nicotine dependence; E66.01 Morbid (severe) obesity due to excess calories; Z68.42 Body mass index [BMI] 45.0-49.9, adult
CPT/HCPCS: 45378; J2704; J7120

== ENCOUNTER 2022-05-21 16:38 | Outpatient (CLI) | payer OTHER, SELFPAY ==
--- NOTE | ~2022-05-21 | MM_ITS ---
EXAMINATION: MM screening [facility] BI w tammy HISTORY: Screening mammogram TECHNIQUE: Craniocaudal and mediolateral oblique 3-D tomosynthesis images were obtained and synthetic 2-D images were generated. CAD analysis was submitted and interpreted. COMPARISON: 05/07/2021, 03/27/2020, 08/18/2017 BREAST PARENCHYMAL COMPOSITION: There are scattered areas of fibroglandular density. FINDINGS: No suspicious mass, calcification, or architectural distortion are identified in either alex ast to suggest malignancy. There has been no suspicious interval change. IMPRESSION: 1. No mammographic evidence of malignancy. 2. Recommend routine screening mammography in one year. BI-RADS Category 1: Negative Reviewed, dictated and finalized at location A. KEET RAISER
== END 2022-05-21 16:39 | disposition home or self-care (01) ==
LOC: ANHIMG 16:41
PROVIDERS: PCP Family Medicine; Visit Provider Obstetrics & Gynecology
DX: Z12.31 Encounter for screening mammogram for malignant neoplasm of breast (principal)
CPT/HCPCS: 77063; 77067

== ENCOUNTER 2022-06-03 15:18 | Emergency (ER) | payer OTHER, SELFPAY ==
[2022-06-03] VITALS (13 sets, daily range): BP systolic 125–150; BP diastolic 76–80; PULSE 73–93; RESP 16–18; TEMP 36.5; O2SAT 97–100
--- NOTE | 2022-06-03 15:42 | ED.ALLEREA ---
HPI - Allergic Reaction General Chief complaint: Allergic Reaction Stated complaint: Allergic Reaction Time Seen by Provider: 06/03/22 15:35 History of Present Illness HPI narrative: Patient is a 51-year-old female with a history of asthma here for evaluation of a pruritic rash that has developed over the past 4 days. Patient states the rash started out in her inguinal region. She presumed it was an allergic reaction to a topical cream prescribed by her community service worker for psoriasis. She discontinued the cream, saw her primary care doctor yesterday who placed her on steroids, Benadryl and Pepcid. Patient has been compliant with these medicines but states that the rash has not been improving. Today she noticed some tightness in her throat and wheezing which prompted her ED evaluation. She does have a history of asthma; denies any shortness of breath. No fevers or chills, nausea or vomiting, difficulty breathing. Related Data Home Medications Medication Instructions Recorded Confirmed adalimumab 40 mg/0.8 mL 40 mg subcut [id number] 03/05/19 12/10/21 subcutaneous pen kit (Humira Pen) budesonide-formoterol HFA 80 2 puff inhalation Q12H 03/05/19 12/10/21 mcg-4.5 mcg/actuation aerosol inhaler (Symbicort) cetirizine 10 mg tablet (Zyrtec) 10 mg PO DAILY 03/05/19 12/10/21 clonazepam 0.5 mg tablet (Klonopin) 0.5 mg PO HS 03/05/19 12/10/21 folic acid 1 mg tablet 1 mg PO DAILY 03/05/19 12/10/21 hydroxyzine pamoate 25 mg capsule 25 mg PO BID 03/05/19 12/10/21 (Vistaril) leflunomide 10 mg tablet (Arava) 10 mg PO DAILY 03/05/19 12/10/21 methotrexate sodium 2.5 mg tablet 20 mg PO WEEKLY 03/05/19 12/10/21 lisinopril 20 1 tablet PO DAILY 09/14/19 12/10/21 mg-hydrochlorothiazide 12.5 mg tablet montelukast 10 mg tablet 10 mg PO DAILY 09/14/19 12/10/21 (Singulair) valacyclovir 1 gram tablet 1,000 mg PO DAILY 05/13/20 08/09/22 (Valtrex) mecobalamin (vitamin B12) 5,000 5,000 mcg PO DAILY 11/25/19 12/10/21 mcg disintegrating tablet thiamine HCl (vitamin B1) 100 mg 100 mg PO DAILY 11/25/19 12/10/21 tablet escitalopram oxalate 20 mg tablet 20 mg PO DAILY 04/10/20 12/10/21 ferrous sulfate 325 mg (65 mg 325 mg PO DAILY 04/10/20 12/10/21 iron) tablet meloxicam 7.5 mg tablet 7.5 mg PO DAILY 04/10/20 12/10/21 albuterol sulfate 90 mcg/actuation 1 inh inhalation .prn 09/17/20 12/10/21 aerosol inhaler (ProAir HFA) fluticasone propionate 50 2 spray intranasal DAILY 09/17/20 12/10/21 mcg/actuation nasal spray,suspension (Flonase Allergy Relief) cholecalciferol (vitamin D3) 250 250 mcg PO DAILY 11/21/21 12/10/21 mcg (10,000 unit) capsule Allergies Allergy/AdvReac Type Severity Reaction Status Date / Time Penicillins Allergy Anaphylactic Verified 06/02/22 09:24 Shock rofecoxib [From Vioxx] AdvReac Hypertensio Verified 06/02/22 09:24 n Review of Systems Review of Systems: Gen: Denies fevers or chills Eyes: Denies eye pain or visual change ENT: Reports throat tightness Respiratory: Denies shortness of breath or cough CV: Denies chest pain or palpitations GI: Denies abdominal pain nausea, emesis or diarrhea : denies burning, urgency, frequency or hematuria Musculoskeletal: Denies back pain or muscle pain Neuro: Denies numbness, tingling, weakness or focal weakness Skin: Denies rash Except as documented, all other systems reviewed and negative PMFSH Past Medical History Medical History Allergic rhinitis Asthma Colon cancer screening Depression History of rectal abscess Hypertension IFG (impaired fasting glucose) Immunosuppression due to drug therapy Mild asthma with exacerbation Morbid obesity (Unknown) RICARDO (obstructive sleep apnea) Psoriatic arthritis Restless leg syndrome Surgical History Surgical History History of bilateral cataract extraction History of cholecyste
[2022-06-03] MEDS: ALBUTEROL SULFATE NEB 2.5 MG/3 ML INH 5 MG INHALATION (15:51)
[2022-06-03] MEDS: methylPREDNISolone SOD SUCC 125 MG VIAL IV PUSH (16:08)
--- NOTE | 2022-06-03 16:45 | PC.NURSE ---
Patient states she feels better and does not wish to have Epi at this time. DINA irvin.
== END 2022-06-03 19:00 | disposition home or self-care (01) ==
PROVIDERS: Emergency Provider Physician Assistant; PCP Family Medicine
DX: J45.909 Unspecified asthma, uncomplicated (principal); I10 Essential (primary) hypertension; L40.50 Arthropathic psoriasis, unspecified; G47.33 Obstructive sleep apnea (adult) (pediatric); G25.81 Restless legs syndrome; E66.01 Morbid (severe) obesity due to excess calories; Z68.43 Body mass index [BMI] 50.0-59.9, adult; F32.A Depression, unspecified; Z98.42 Cataract extraction status, left eye; Z98.41 Cataract extraction status, right eye; Z98.84 Bariatric surgery status; Z90.711 Acquired absence of uterus with remaining cervical stump; Z87.891 Personal history of nicotine dependence
CPT/HCPCS: 94640; 96374; 99284; J2930

== ENCOUNTER 2022-09-23 16:31 | Outpatient (CLI) | payer OTHER, SELFPAY ==
[2022-09-23 19:43] LABS: Alanine Aminotransferase 27 U/L (6-35); Albumin Level 4.2 g/dL (3.5-5.1); Alkaline Phosphatase 70 U/L (38-126); Anion Gap 9 mmol/L (8-16); Aspartate Amino Transferase 43 U/L (14-36); Bilirubin,Total 0.5 mg/dL (0.2-1.3); Blood Urea Nitrogen 15 mg/dL (7-17); Calcium 9.1 mg/dL (8.4-10.2); Carbon Dioxide 27 mmol/L (22-30); Chloride 99 mmol/L (98-107); Estimated Glomerular Filt Rate > 60; Glucose 106 mg/dL (65-110); Potassium 3.7 mmol/L (3.4-5.0); Sodium 135 mmol/L (137-145)
[2022-09-23 19:45] LABS: Hematocrit 42.9 % (37.0-47.0); Hemoglobin 14.1 g/dL (12.0-15.0); Mean Corpuscular HGB Conc 32.9 g/dl (32-36); Mean Corpuscular Hemoglobin 29.9 pg (26-34); Mean Corpuscular Volume 91.1 fl (80-100); Mean Platelet Volume 12.1 fl (7.4-10.4); Platelet Count Result 367 k/mm3 (150-375); Red Blood Count 4.71 M/mm3 (4.2-5.4); Red Cell Distribution Width 14.3 % (11.5-14.5); White Blood Count 7.4 K/mm3 (4.5-10.0)
[2022-09-23 20:24] LABS: HIV 1/2 Ab P24 Ag Result Negative (Negative)
[2022-09-23 20:33] LABS: Hepatitis B Surface Anti Res Negative; Hepatitis C Virus Antibody Negative (Negative)
[2022-09-30 07:45] LABS: NIL 0.03; Quantiferon TB Plus, 1T Negative; TB1-NIL 0.01; TB2-NIL 0.01
== END 2022-09-23 16:32 | disposition home or self-care (01) ==
LOC: ANHLAB 16:35
PROVIDERS: PCP Family Medicine
DX: L40.0 Psoriasis vulgaris (principal)
CPT/HCPCS: 36415; 80053; 85027; 86480; 86703; 86706; 86803; G0432

== ENCOUNTER 2023-01-06 09:02 | Outpatient (CLI) | payer OTHER, SELFPAY ==
[2023-01-06 10:01] LABS: Hematocrit 44.6 % (37.0-47.0); Hemoglobin 14.7 g/dL (12.0-15.0); Mean Corpuscular Hemoglobin 29.2 pg (26-34); Mean Corpuscular Volume 88.7 fl (80-100); Platelet Count Result 331 k/mm3 (150-375); Red Blood Count 5.03 M/mm3 (4.2-5.4); Red Cell Distribution Width 13.4 % (11.5-14.5); White Blood Count 9.6 K/mm3 (4.5-10.0)
[2023-01-06 10:06] LABS: Alanine Aminotransferase 16 U/L (6-35); Albumin Level 4.3 g/dL (3.5-5.1); Alkaline Phosphatase 67 U/L (38-126); Anion Gap 9 mmol/L (8-16); Aspartate Amino Transferase 26 U/L (14-36); Bilirubin,Total 0.3 mg/dL (0.2-1.3); Blood Urea Nitrogen 16 mg/dL (7-17); CRP 0.7 mg/dL (<1.0); Calcium 9.5 mg/dL (8.4-10.2); Carbon Dioxide 29 mmol/L (22-30); Chloride 98 mmol/L (98-107); Cholesterol 224 mg/dL (0-200); Estimated Glomerular Filt Rate > 60; Glucose 150 mg/dL (65-110); HDL Direct 53 mg/dL; Potassium 3.8 mmol/L (3.4-5.0); Sodium 136 mmol/L (137-145); Triglycerides 208 mg/dL (<150)
[2023-01-06 10:15] LABS: Iron 225 ug/dL (37-170); LDL Cholesterol Direct 137 mg/dL
[2023-01-06 10:19] LABS: Hemoglobin A1C 6.1 % (<5.7)
[2023-01-06 10:25] LABS: Erythrocyte Sedimentation Rate 17 mm/hr (0-20)
[2023-01-06 10:33] LABS: Free T4 Free Thyroxine 1.46 ng/mL (0.78-2.19)
[2023-01-06 11:10] LABS: Folic Acid 6.8 ng/mL (2.76->20)
[2023-01-06 11:21] LABS: Vitamin D 25 Hydroxy 52.4 ng/mL
[2023-01-07 23:18] LABS: Zinc 82 mcg/dL (60-130)
[2023-01-09 10:09] LABS: Vitamin B1 9 nmol/L (8-30)
== END 2023-01-06 09:03 | disposition home or self-care (01) ==
PROVIDERS: PCP Family Medicine
DX: E66.9 Obesity, unspecified (principal); E55.9 Vitamin D deficiency, unspecified; K90.9 Intestinal malabsorption, unspecified; I10 Essential (primary) hypertension; Z98.84 Bariatric surgery status
CPT/HCPCS: 36415; 80053; 80061; 82306; 82525; 82607; 82728; 82746; 83036; 83540; 84425; 84439; 84443; 84630; 85027; 85652; 86140

== ENCOUNTER 2023-01-19 16:57 | Outpatient (CLI) | payer OTHER, SELFPAY ==
[2023-01-19 17:48] LABS: Influenza A QL RT-PCR Negative (Negative); Influenza B QL RT-PCR Negative (Negative); SARS-CoV-2 RNA PCR Negative (Negative)
== END 2023-01-19 16:58 | disposition home or self-care (01) ==
PROVIDERS: PCP Family Medicine; Visit Provider Physician Assistant
DX: R05.9 Cough, unspecified (principal)
CPT/HCPCS: 87636

== ENCOUNTER 2023-02-02 15:44 | Outpatient (CLI) | payer OTHER, SELFPAY ==
--- NOTE | ~2023-02-02 | XR_ITS ---
XR chest 2V DATE: 02/02/2023 15:59 INDICATION: Shortness of breath. Pneumonia 3 weeks ago TECHNIQUE: PA and lateral views COMPARISON: 10/31/2021 2 view chest FINDINGS: Normal heart size. No hilar or mediastinal enlargement. No pulmonary infiltrate or consolid ation, pleural effusion or pulmonary vascular congestion or pneumothorax. Osteopenia. Degenerative spurring of the thoracic spine. IMPRESSION: No active cardiopulmonary disease Reviewed, dictated and finalized at location B.
== END 2023-02-02 15:45 | disposition home or self-care (01) ==
LOC: ANHIMG 15:47
PROVIDERS: PCP Family Medicine; Visit Provider Physician Assistant
DX: R06.02 Shortness of breath (principal)
CPT/HCPCS: 71046

== ENCOUNTER 2023-06-30 16:45 | Outpatient (CLI) | payer OTHER, SELFPAY ==
--- NOTE | ~2023-06-30 | MM_ITS ---
EXAMINATION: MM screening [facility] BI w tammy HISTORY: Screening TECHNIQUE: Craniocaudal and mediolateral oblique 3-D tomosynthesis images were obtained and synthetic 2-D images were generated. CAD analysis was submitted and interpreted. COMPARISON: Comparison to multiple prior studies sequentially, with oldest reviewed study dated 08/18. BREAST PARENCHYMAL COMPOSITION: Not dense: There are scattered areas of fibroglandular density. FINDINGS: There is no evidence of suspicious mass, calcification, or architectural distortion to sugg est malignancy in either breast. There has been no suspicious interval change. IMPRESSION: 1. No mammographic evidence of malignancy. 2. Recommend routine screening mammography in one year. BI-RADS Category 1: Negative Reviewed, dictated and finalized at location A. ATIENT DIETITIAN
== END 2023-06-30 16:46 | disposition home or self-care (01) ==
PROVIDERS: PCP Family Medicine; Visit Provider Obstetrics & Gynecology
DX: Z12.31 Encounter for screening mammogram for malignant neoplasm of breast (principal)
CPT/HCPCS: 77063; 77067